=== PATIENT | male | born 1965 ===

== ENCOUNTER 2017-09-15 06:50 | Inpatient (IN) | payer OTHER ==
[2017-09-17] MEDS ORDERED: LEVAQUIN500 MG PO (16:03)
[2017-09-17] MEDS ORDERED: INTESTINEX680 M1 PO (16:03)
== END 2017-09-17 17:26 | disposition home or self-care (01) | DRG 395 ==
LOC: AMB-ENDOS 06:50 → SURG 19:57
PROC: 0DBN8ZX Excision of Sigmoid Colon, Via Natural or Artificial Opening Endoscopic, Diagnostic (ICD-10-PCS; principal; 2017-09-15)
PROC: 3E0H8KZ Introduction of Other Diagnostic Substance into Lower GI, Via Natural or Artificial Opening Endoscopic (ICD-10-PCS; 2017-09-15)
PROC: BW21YZZ Computerized Tomography (CT Scan) of Abdomen and Pelvis using Other Contrast (ICD-10-PCS; 2017-09-16)
DX: D12.4 Benign neoplasm of descending colon (principal); K57.30 Diverticulosis of large intestine without perforation or abscess without bleeding